=== PATIENT | female | born 1980 | race Caucasian/White ===

== ENCOUNTER 2017-10-14 06:58 | Emergency (ER) | payer SELFPAY ==
[~2017-10-14] VITALS: Ht 157.5 cm; Wt 86.2 kg
--- NOTE | ~2017-10-14 | EKG ---
[place] [address] [address] [facility] 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[facility] : 1980 Requested By: Alma Cunningham Order Number: [id number] MD: Prashanth Jhaveri Measurements Intervals [place] Rate: 88 P: 72 NV: 123 QRS: 23 QRSD: 79 T: 21 QT: 352 QTc: 426 Interpretive Statements Sinus rhythm Normal tracing No previous ECG available for comparison Electronically Signed On 10-14-2017 11:31:04 BUSINESS OBJECTS CONSULTANT by Prashanth Jhaveri [email or web address] <ELECTRONICALLY SIGNED> By: Prashanth Jhaveri MD, [facility] 10/14/17 [id number] Prashanth Jhaveri MD, FACC /EPI
[2017-10-14 08:02] LABS: ABSOLUTE NEUTROPHILS 12.3 thou/uL (1.4-8.2); BASOPHILS 0.1 % (0.0-2.0); EOSINOPHILS 0.1 % (0.0-3.0); HEMATOCRIT 44.6 % (37.0-47.0); LYMPHOCYTES 7.7 % (24.0-44.0); MCH 30.4 pg (26.0-34.0); MCHC 33.7 g/dL (28.0-37.0); MCV 90.2 fL (80.0-100.0); MONOCYTES 3.1 % (1.0-8.0); PLATELET COUNT 321 thou/uL (150-400); RBC 4.95 mil/uL (4.20-5.00); RDW 14.1 % (10.5-14.5); WBC 13.8 thou/uL (4.0-11.0)
[2017-10-14 08:18] LABS: CALCIUM 8.6 mg/dL (8.5-10.1); CREATININE 0.7 mg/dL (0.6-1.0); POTASSIUM 4.2 mmol/L (3.5-5.1)
== END 2017-10-14 09:51 | disposition home or self-care (01) ==
LOC: ER 06:58
PROVIDERS: Emergency Medicine
DX: R55 Syncope and collapse (principal)

== ENCOUNTER 2019-08-27 04:54 | Emergency (ER) | payer OTHER ==
[~2019-08-27] VITALS: Ht 157.5 cm; Wt 86.2 kg
[2019-08-27] MEDS ORDERED: MAXITROL EYE O3.5 GM NASAL (05:14)
[2019-08-27] MEDS ORDERED: PROAIR HFA8.5 GM INH (05:14)
[2019-08-27] MEDS ORDERED: PRED FORTE 1% EY5 M1 OPHTHALMIC (05:14)
[2019-08-27] MEDS ORDERED: NAPROSYN500 MG PO (06:00)
[2019-08-27 06:36] VITALS: BP 126/57
--- NOTE | 2019-08-27 08:11 | EKG ---
[place] [address] 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 : 1980 Requested By: David Bedolla Order Number: [id number] MD: Prashanth Jhaveri Measurements Intervals [place] Rate: 65 P: 66 LA: 131 QRS: 34 QRSD: 78 T: 28 QT: 384 QTc: 400 Interpretive Statements Sinus rhythm Normal tracing Compared to ECG 10/14/2017 07:52:15 No significant change was found Electronically Signed On 08-27-2019 8:11:00 SHANK CARRIER by Prashanth Jhaveri [email or web address] <ELECTRONICALLY SIGNED> By: Prashanth Jhaveri MD, [facility] 08/27/19 [phone] Prashanth Jhaveri MD, FACC /EPI
== END 2019-08-27 06:36 | disposition home or self-care (01) ==
LOC: ER 04:54
DX: R07.89 Other chest pain (principal); J45.909 Unspecified asthma, uncomplicated